=== PATIENT | male | born 1955 | race Caucasian/White ===

== ENCOUNTER 2021-10-14 13:44 | Outpatient (CLI) | payer OTHER, SELFPAY | END 2021-10-14 13:45 | disposition home or self-care (01) | LOC: AMB 10-26 18:19 | PROVIDERS: Visit Provider Family Medicine | DX: S01.01XA Laceration without foreign body of scalp, initial encounter (principal); W45.8XXS Other foreign body or object entering through skin, sequela; W22.8XXS Striking against or struck by other objects, sequela; Y93.H3 Activity, building and construction; Y92.007 Garden or yard of unspecified non-institutional (private) residence as the place of occurrence of the external cause | CPT/HCPCS: A0425; A0427 ==

== ENCOUNTER 2021-10-14 14:11 | Emergency (ER) | payer OTHER, SELFPAY ==
[2021-10-14] VITALS (11 sets, daily range): BP systolic 140–165; BP diastolic 85–101; PULSE 53–62; RESP 12–32; TEMP 36.3; O2SAT 87–98; BMI 28.7
--- NOTE | 2021-10-14 14:22 | CRLHL7_ITS ---
For Patients: As a result of the Century Cures Act, medical imaging exams and procedure reports are released immediately into your electronic medical record. You may view this report before your referring provider. If you have questions, please contact your health care provider. Indication: Forklift injury Technique: Volumetric multidetector CT images of the head were obtained without the administration of low osmolar intravenous contrast. Comparison: None available Findings: There is no intra-axial or extra-axial fluid collection. There is no mass effect or midline shift. There is age-related cortical atrophy with mild sulcal widening and ex vacuo dilatation of the lateral ventricles. There are chronic small vessel disease changes in the subcortical and periventricular white matter without lost westfall-white differentiation. The orbits and their contents are grossly within normal limits. There is demonstration of a large left scalp and scalp vertex subgaleal soft tissue hematoma with extension into the left posterior temporal us adventitia. The underlying bony calvarium is otherwise grossly intact. There is minimal polypoid mucosal thickening in the paranasal sinuses. The mastoid air cells are well aerated. Impression: Demonstration of a large scalp laceration and hematoma extending along the right scalp vertex into the left temporal soft tissues with likely involvement of the left temporalis adventitia. Otherwise, age related changes of the brain without acute intracranial abnormality. Please note that all CT scans at this facility use dose modulation, iterative reconstruction, and/or weight-based dosing when appropriate to reduce radiation dose to as low as reasonably achievable. Dictated by Moises Bueno MD @ 10/14/2021 3:26:41 PM (Electronically Signed)
--- NOTE | 2021-10-14 14:22 | CRLHL7_ITS ---
For Patients: As a result of the Century Cures Act, medical imaging exams and procedure reports are released immediately into your electronic medical record. You may view this report before your referring provider. If you have questions, please contact your health care provider. Indication: Forklift injury Technique: Volumetric multidetector CT images of the cervical spine were obtained without the administration of IV contrast. Comparison: None available. Findings: The cervical vertebral body heights are grossly maintained. There is mild straightening of the normal cervical lordosis without significant spondylolisthesis. There is no displaced fracture or dislocation. There is moderate multilevel degenerative disc height loss with marginal osteophyte formation. There is moderate to severe facet arthrosis. There is demonstration of a small bone island in the C7 spinous process. The paraspinous soft tissues are grossly within normal limits. Impression: [id number] multilevel degenerative changes of the cervical spine without acute osseous abnormality. Please note that all CT scans at this facility use dose modulation, iterative reconstruction, and/or weight-based dosing when appropriate to reduce radiation dose to as low as reasonably achievable. Dictated by Moises Bueno MD @ 10/14/2021 3:29:28 PM (Electronically Signed)
--- NOTE | 2021-10-14 15:00 | ED.NURSE ---
Pt dried blood cleaned off arms, chest, and face. Irrigation started on scalp lac with NS and jet bombsight specialist.
[2021-10-14] MEDS: CEFAZOLIN 1 GM in 0.9 % SODIUM CHLORIDE Mini-bag 100 ML IVPB (15:15)
[2021-10-14] MEDS: ONDANSETRON 2 MG/ML inj 4 MG IVP (15:15)
[2021-10-14] MEDS: 0.9 % SODIUM CHLORIDE 500 ML 500 ML IV (15:16)
[2021-10-14 15:22] LABS: Basophils Absolute Auto 0.02 K/uL (0.00-0.30); Basophils Percent Auto 0.3 % (0.0-3.0); Eosinophils Absolute Auto 0.19 K/uL (0.00-0.50); Eosinophils Percent Auto 2.7 % (0.0-7.0); Hematocrit 39.8 % (37.0-53.0); Hemoglobin* 13.8 gm/dL (13.5-17.5); Immature Granulocytes Abs Auto 0.02 K/uL (0.00-0.30); Lymphocytes Absolute Auto 2.08 K/uL (0.90-2.90); Lymphocytes Percent Auto 29.8 % (20-44); Mean Corpuscular HGB Conc 35 gm/dL (32-36); Mean Corpuscular Hemoglobin 30 pg (26-34); Mean Corpuscular Volume 85 fL (80-100); Neutrophils Absolute Auto 4.11 K/uL (1.7-7.0); Neutrophils Percent Auto 58.9 % (42.0-72.0); Platelet Count* 162 K/uL (140-440); RDW Coefficient of Variation % 12.4 % (11.5-15.5); Red Blood Count 4.68 m/uL (4.30-5.90); White Blood Count* 6.98 K/uL (4.50-11.00)
[2021-10-14] MEDS: TRANEXAMIC ACID 1,000 MG in 0.9 % SODIUM CHLORIDE 100 ml 100 ML 440 MG IVPB (15:25)
--- NOTE | 2021-10-14 15:27 | ED.NURSE ---
1512--placed rainy clicks 11 in the scalp area to help stop the bleeding. wrapped with 4x4s, abd pad, and ye wrap. bleeding has decreased and will continue to monitor on the dressing as cleaned up and placed a fresh vijay underneath patient's head.
[2021-10-14] MEDS: TETANUS/DIPHTH/PERTUSSIS 0.5 ML SYRINGE IM (15:30)
--- NOTE | 2021-10-14 15:30 | ED.NURSE ---
Issues with Adacel order. Per Pharmacy direction, info here: Adacel IM given to Pt RNarcisa Calzadaoid. Lot #: [id number], Exp: [id number].
[2021-10-14 15:42] LABS: Slide Review Reflex No
[2021-10-14 15:49] LABS: Chloride* 110 mmol/L (96-114)
[2021-10-14] MEDS: MORPHINE 2 MG/ML inj IVP (15:49)
[2021-10-14 15:50] LABS: Potassium* 4.4 mmol/L (3.6-5.1); Sodium* 138 mmol/L (135-149)
[2021-10-14 15:52] LABS: Creatinine* 1.7 mg/dL (0.5-1.5); Est. Creatinine Clearance* 45.33; Estimated Glomerular Filt Rate 44 ml/min
[2021-10-14 15:53] LABS: Blood Urea Nitrogen* 21 mg/dL (7-30); Calcium* 8.4 mg/dL (8.4-10.6); Carbon Dioxide* 21 mmol/L (20-32); Glucose* 117 mg/dL (60-115)
--- NOTE | 2021-10-14 15:53 | ED.HEATRA ---
HPI - Head Injury General Date Seen: 10/14/21 Chief complaint: Head Injury/Pain Stated complaint: Head Injury Time Seen by Provider: 10/14/21 14:15 Source: patient Mode of arrival: EMS Limitations: no limitations History of Present Illness HPI Narrative: Patient is a 65-year-old gentleman who presents here for evaluation after a TT a was called. He has met in the hallway, he has the head injury, after his head went into cage on the forklift. Forklift was only going approximately 1 or 2 miles an hour when he went forward after big when caught this steel that it was carrying. He was able to get out of the forklift to walk around but immediately laid down. He was noted to have bleeding on his head. EMS arrived. Bundle this head and brought him in for assessment. Has no nausea no vomiting, denies any numbness tingling weakness. Does say his neck is somewhat sore. No history of previous head injuries, he is on some medications but unable to verbalize to me what the medications are but believes there for hypertension out of [place]. Complaint: head injury Onset (ago): minute(s) Related Data Home Medications Medication Instructions Recorded Confirmed Unobtainable 10/14/21 10/14/21 Allergies Allergy/AdvReac Type Severity Reaction Status Date / Time No Known Drug Allergies Allergy Verified 10/14/21 14:46 Review of Systems Status of ROS: Reports: 10 or more systems reviewed and unremarkable except as noted in History and below Exam Narrative: Exam Narrative: Patient does not have C-spine protection on, is on in the rney. Speaking to me normally although somewhat slow to respond. With a GCS of 14/15. There is lot of blood around his head region. Pupils are equal round reactive to light his fundi appear normal his TMs are normal. Cervical spine is nontender there is no hematoma or injury to the front part of his neck. His chest is clear easy air entry, no signs or spot her distress he palpates normal in the anterior, heart is sounds no clicks murmurs or gallops normal S1-S2 is noted. His abdomen is soft there has been no tenderness to palpation bowel sounds are normal. His pelvis is normal stable to rocking. But no tenderness to palpation moves all extremities independently and well. With both proximal and distal muscle strength assessed and normal. Log-rolled on the side his cervical thoracic and lumbar spine appear normal is good air entry with no evidence of any hematoma or other issues. We did remove the dressing on his head. After we initially got the CT of his head neck. There is a large laceration that is rate down to the cranium, it is flap shape. Running approximately [address] around. Significant bleeding is occurring. And 8 Eleanor clips are applied. I did put 4x4s on all over and back is Terrence wrap is used around his head to apply pressure. Const: Vital Signs, click to edit/add: Vital Signs - 24 hr 10/14/21 14:15 Temperature 97.4 F L Pulse Rate [Right Pulse Oximeter] 60 Respiratory Rate 16 Blood Pressure [Ri ght Upper Arm] 155/91 H Pulse Oximetry 98 Documenting provider has reviewed patient's vital signs: yes Common normals: no apparent distress Course Course Hospital Course: 4 pm a reason to send by helicopter. At this point given the complexity of the scalp laceration the amount of bleeding. I called [facility]. Dr.Katie Mueller accepted the patient in transfer. Unfortunately there is a delay to transfer the patient [facility] as both ambulance as are out on 911 calls. At this point I do not see the reason to send by helicopter. Patient: VERNELL BUSH Facility:?[facility] Patient ID:?[id number] Site Patient ID:?[id number]. Site :?[id number] Study:?CT Head WITHOUT-10/14/2021 2:33:41 PM Ordering Physician:Darling Macdonald Final Report: Indication: Forklift injury Technique: Volumetric multidetector CT images of the head were obtained without the administration of low osmolar intravenous contrast. Comparison: None available Findings: There is no intra-axial or extra-axial fluid collection. There is no mass effect or midline shift. There is age-related cortical atrophy with mild sulcal widening and ex vacuo dilatation of the lateral ventricles. There are chronic small vessel disease changes in the subcortical and periventricular white matter without lost westfall-white differentiation. The orbits and their contents are grossly within normal limits. There is demonstration of a large left scalp and scalp vertex subgaleal soft tissue hematoma with extension into the left posterior temporal us adventitia. The underlying bony calvarium is otherwise grossly intact. There is minimal polypoid mucosal thickening in the paranasal sinuses. The mastoid air cells are well aerated. Impression: Demonstration of a large scalp laceration and hematoma extending along the right scalp vertex into the left temporal soft tissues with likely involvement of the left temporalis adventitia. Otherwise, age related changes of the brain without acute intracranial abnormality. Please note that all CT scans at this facility use dose modulation, iterative reconstruction, and/or weight-based dosing when appropriate to reduce radiation dose to as low as reasonably achievable. Dictated by Moises Bueno MD @ 10/14/2021 3:26:41 PM (Electronic Signature) Patient: VERNELL BUSH Facility:?[facility] Patient ID:?[id number] Site Patient ID:?[id number] Site :?[id number] Study:?CT Spine Cervical -10/14/2021 2:34:52 PM Ordering Physician:Darling Macdonald Final Report: Indication: Forklift injury Technique: Volumetric multidetector CT images of the cervical spine were obtained without the administration of IV contrast. Comparison: None available. Findings: The cervical vertebral body heights are grossly maintained. There is mild straightening of the normal cervical lordosis without significant spondylolisthesis. There is no displaced fracture or dislocation. There is moderate multilevel degenerative disc height loss with marginal osteophyte formation. There is moderate to severe facet arthrosis. There is demonstration of a small bone island in the C7 spinous process. The paraspinous soft tissues are grossly within normal limits. Impression: [id number] multilevel degenerative changes of the cervical spine without acute osseous abnormality. Please note that all CT scans at this facility use dose modulation, iterative reconstruction, and/or weight-based dosing when appropriate to reduce radiation dose to as low as reasonably achievable. Dictated by Moises Bueno MD @ 10/14/2021 3:29:28 PM (Electronic Signature) Vital Signs Vital signs: Initial Vital Signs Temperature 97.4 F L 10/14/21 14:15 Temperature Source Temporal Artery Scan 10/14/21 14:15 Pulse Rate 60 10/14/21 14:15 Respiratory Rate 16 10/14/21 14:15 Blood Pressure 155/91 H 10/14/21 14:15 Blood Pressure Mean 112 10/14/21 14:15 Blood Pressure Position Supine 10/14/21 14:15 Pulse Oximetry 98 10/14/21 14:15 Oxygen Delivery Method 10/14/21 14:15 Vital Signs Temperature 97.4 F L 10/14/21 14:15 Pulse Rate 60 10/14/21 14:15 Respiratory Rate 16 10/14/21 14:15 Blood Pressure 155/91 H 10/14/21 14:15 Pulse Oximetry 98 10/14/21 14:15 Temperature 97.4 F L 10/14/21 14:15 Pulse Rate 60 10/14/21 14:15 Respiratory Rate 16 10/14/21 14:15 Blood Pressure 155/91 H 10/14/21 14:15 Pulse Oximetry 98 10/14/21 14:15 MDM - Head Injury Differential Diagnosis Differential diagnosis: Likely concussion without loss of consciousness, epidural hematoma, closed head injury, subarachnoid hematoma, postconcussion syndrome, subdural hematoma and concussion with loss of consciousness Lab Data Attestation: I reviewed the patient's lab results. Labs: Lab Results 10/14/21 10/14/21 Range/Units 15:10 15:27 WBC 6.98 (4.50-11.00) K/uL RBC 4.68 (4.30-5.90) m/uL Hgb 13.8 (13.5-17.5) gm/dL Hct 39.8 (37.0-53.0) % MCV 85 (80-100) fL MCH 30 (26-34) pg MCHC 35 (32-36) gm/dL RDW Coeff of Annemarie 12.4 (11.5-15.5) % Plt Count 162 (140-440) K/uL Neut % (Auto) 58.9 (42.0-72.0) % Lymph % (Auto) 29.8 (20-44) % Childress % (Auto) 8.0 (0.0-11.0) % Eos % (Auto) 2.7 (0.0-7.0) % Baso % (Auto) 0.3 (0.0-3.0) % Neut # (Auto) 4.11 (1.7-7.0) K/uL Lymph # (Auto) 2.08 (0.90-2.90) K/uL Childress # (Auto) 0.60 (0.00-0.90) K/UL Eos # (Auto) 0.19 (0.00-0.50) K/uL Baso # (Auto) 0.02 (0.00-0.30) K/uL Abs Immat Gran (auto) 0.02 (0.00-0.30) K/uL Sodium 138 (135-149) mmol/L Potassium 4.4 (3.6-5.1) mmol/L Chloride 110 (96-114) mmol/L Carbon Dioxide 21 (20-32) mmol/L BUN 21 (7-30) mg/dL Creatinine 1.7 H (0.5-1.5) mg/dL Estimated Creat Clear 45.33 Estimated GFR 44 ml/min Glucose 117 H (60-115) mg/dL Calcium 8.4 (8.4-10.6) mg/dL Discharge Plan Discharge Clinical Impression: Concussion without loss of consciousness, Complex laceration of scalp Closed head injury Qualifiers: Encounter type: initial encounter Qualified Code(s): S09.90XA - Unspecified injury of head, initial encounter Patient Disposition: Xfer Other Discharge Location: [facility] Condition: Stable Prescriptions: No Action Unobtainable 0RF Stand Alone Forms: [employer] Info Instructions Procedures Additional Procedures Procedure name: Application of Eleanor clips Pre procedure diagnosis: Severe bleeding and laceration of the scalp Post procedure diagnosis: Severe bleeding and laceration of the scalp Estimated blood loss (if any): other (specify) (150 mL blood) Conclusion: patient tolerated procedure
--- NOTE | 2021-10-14 16:13 | ED.NURSE ---
Pt departs ER via EMS.
[2021-10-31 11:05] LABS: Troponin, Point-of-Care* 0.01 ng/ml (0.01-0.04)
== END 2021-10-14 16:15 | disposition other institution (70) ==
PROVIDERS: Emergency Provider Family Medicine
DX: S01.01XA Laceration without foreign body of scalp, initial encounter (principal); W24.0XXA Contact with lifting devices, not elsewhere classified, initial encounter; V83.5XXA Driver of special industrial vehicle injured in nontraffic accident, initial encounter
CPT/HCPCS: 36415; 70450; 72125; 80048; 84484; 85025; 90715; 93005; 96365; 96366; 96372; 96375; 99285; 99291; G0390; J0690; J2270; J2405; J7120

== ENCOUNTER 2021-10-14 16:01 | Outpatient (CLI) | payer OTHER, SELFPAY | END 2021-10-14 16:02 | disposition home or self-care (01) | LOC: AMB 10-19 19:28 | PROVIDERS: Visit Provider Family Medicine | DX: S09.90XS Unspecified injury of head, sequela (principal); S06.2X0A Diffuse traumatic brain injury without loss of consciousness, initial encounter; S01.01XA Laceration without foreign body of scalp, initial encounter | CPT/HCPCS: A0425; A0427 ==